=== PATIENT | female | born 1995 | race Asian ===

== ENCOUNTER 2022-12-10 15:42 | Inpatient (IN) ==
[2022-12-10 18:07] LABS: ABS Basophils 0.1 10^3/uL (0.0-0.1); ABS Lymphocytes 2.5 10^3/uL (1.0-4.8); ABS Monocytes 1.1 10^3/uL (0.0-0.9); ABS Neutrophils 10.5 10^3/uL (1.5-7.6); ABS Nucleated RBC 0.03 10^3/ul; Eosinophil % 0.3 %; Hematocrit 45.1 % (35-45); Hemoglobin 15.2 g/dL (11.5-14.3); Lymphocyte % 17.9 %; Mean Corpuscular Hemoglobin 27.5 pg (27-33); Mean Corpuscular Hgb Conc 33.6 g/dL (31-36); Mean Corpuscular Volume 81.9 fL (80-97); Mean Platelet Volume 8.2 fL (7.5-11.2); Nucleated Red Blood Cells % 0.2 /100 WBC (0.0-0.4); Platelet Count 289 10^3/uL (150-450); Red Blood Count 5.51 10^6/uL (3.63-4.92); Red Cell Distribution Width 14.3 % (12-17); White Blood Count 14.2 10^3/uL (3.8-11.8)
[2022-12-10 18:26] LABS: ALT 15 U/L (7-52); AST 12 U/L (13-39); Albumin 4.8 g/dL (3.2-5.2); Albumin/Globulin Ratio 1.6 (1-3); Alkaline Phosphatase 63 U/L (35-149); Anion Gap 11 mmol/L (2-16); Blood Urea Nitrogen 13 mg/dL (6-24); CO2 Carbon Dioxide 21 mmol/L (22-32); Calcium 9.7 mg/dL (8.6-10.3); Chloride 104 mmol/L (101-111); Creatinine, Serum 0.67 mg/dL (0.51-0.95); Glucose 112 mg/dL (70-100); Potassium 3.9 mmol/L (3.5-5.0); Sodium 136 mmol/L (135-145); Total Protein 7.8 g/dL (6.4-8.9); eGFR CKD-EPI 123.5 (>60)
[2022-12-10 18:31] LABS: HCG Pregnancy < 0.60 mIU/mL
[2022-12-10 18:33] LABS: Urine Benzodiazepine Screen None Detected (None Detect); Urine Cannabinoids Screen Presumptive Positive (None Detect); Urine Opiates Screen None Detected (None Detect)
[2022-12-10 18:39] LABS: Urine Appearance Clear; Urine Bacteria 1+ (Absent); Urine Bilirubin Negative (Negative); Urine Blood 1+ (Negative); Urine Color Yellow; Urine Glucose 1+(50 mg/dL) (Negative); Urine Ketones Negative (Negative); Urine Nitrite Negative (Negative); Urine Protein Negative (Negative); Urine Red Blood Cell Trace(0-2/hpf) (Absent); Urine Specific Gravity 1.016 (1.002-1.030); Urine Squamous Epithelial Cell Present (Absent); Urine Urobilinogen Negative (Negative); Urine White Blood Cell Trace(0-5/hpf) (Absent)
[2022-12-10 19:08] LABS: Acetaminophen < 15 mcg/mL; Alcohol, S < 13 mg/dL (<13); Salicylate < 2.50 mg/dL (<30)
[2022-12-10 19:22] LABS: TSH Ultra Thyroid Stim Horm 1.72 mcIU/mL (0.34-5.60)
[2022-12-10] MEDS ORDERED: OLANZapine 10 mg TAB*ODT PO ONE (19:40)
[2022-12-10] MEDS ORDERED: Al Hydrox/Mg Hydrox/Simet LIQ 30 ML UDC PO PRN (21:28)
[2022-12-11 08:33] LABS: HDL Cholesterol 67.3 mg/dL
[2022-12-11] MEDS: Vitamin THERAPEUTIC TAB PO SCH (09:53)
[2022-12-11] MEDS ORDERED: OLANZapine 5 mg TAB *ODT PO PRN (13:06)
[2022-12-12] MEDS: Vitamin THERAPEUTIC TAB PO SCH (10:06)
[2022-12-13] MEDS: Vitamin THERAPEUTIC TAB PO SCH (11:40)
[2022-12-14] MEDS: Vitamin THERAPEUTIC TAB PO SCH (09:51)
[2022-12-15] MEDS: Vitamin THERAPEUTIC TAB PO SCH (08:52)
[2022-12-16] MEDS: Vitamin THERAPEUTIC TAB PO SCH (09:04)
[2022-12-17] MEDS: Vitamin THERAPEUTIC TAB PO SCH (08:42)
[2022-12-18] MEDS: Vitamin THERAPEUTIC TAB PO SCH (08:37)
[2022-12-18 09:01] VITALS: BP 103/61
== END 2022-12-18 12:07 | disposition home or self-care (01) | DRG 753 ==
LOC: ED 15:42 → EDHOLD 20:29 → BSU 22:43
PROVIDERS: ADMIT Psychiatry & Neurology Psychiatry; ATTEND Student in an Organized Health Care Education/Training Program